=== PATIENT | female | born 1990 | race Caucasian/White ===

== ENCOUNTER → 2022-08-29 09:38 | Outpatient (CLI) | payer BC, SELFPAY ==
--- NOTE | ~2022-08-29 | US_ITS ---
EXAMINATION: US pelvic complete DATE: 08/29/2022 09:55 INDICATION: Pelvic Pain TECHNIQUE: Multiple transabdominal sonographic images of the pelvis were obtained. COMPARISON: None. FINDINGS: Uterus: 8.4 x 3.3 x 4.9 cm. Uterus is slightly retroflexed. Endometrial complex measures 3 mm. Right Ovary: 2.0 x 2.3 x 2.6 cm. Vascular flow is present. Left Ovary: 2.8 x 1.6 x 2.9 cm. Vascular flow is present. There is no free fluid in the pelvis. IMPRESSION: Normal pelvic sonogram findings. Reviewed, dictated and finalized at location K. DRIVER OPERATOR HELPER
== END ==
PROVIDERS: PCP Family Medicine; Visit Provider Nurse Practitioner
DX: R10.2 Pelvic and perineal pain (principal)
CPT/HCPCS: 76856

== ENCOUNTER → 2023-09-06 15:50 | Outpatient (CLI) | payer BC, SELFPAY ==
--- NOTE | ~2023-09-06 | US_ITS ---
EXAMINATION: US transvaginal DATE: 09/06/2023 16:21 INDICATION: Displacement of an intrauterine contraceptive TECHNIQUE: Multiple endovaginal sonographic images of the pelvis were obtained. COMPARISON: 08/29/2022 FINDINGS: The uterus measures 7.5 x 3.5 x 3.7 cm. The endometrial complex measures 6 mm in thickness. There is a linear echogenic and shadowing IUD which extends into the endocervical canal with more posterior 4 mm anechoic nabothian cyst at the cervix. The right ovary measures 1.8 x 1.7 x 2.1 cm. The left ovar y measures 2.8 x 2.4 x 2.4 cm. There are a few subcentimeter anechoic follicles at both ovaries. Vasc ular flow identified in both ovaries on color Doppler. There is no free fluid in the pelvis. IMPRESSION: 1. IUD extends into the endocervical canal. Reviewed, dictated and finalized at location A. E EPIDEMIOLOGIST
== END ==
PROVIDERS: PCP Nurse Practitioner; Visit Provider Nurse Practitioner
DX: N93.8 Other specified abnormal uterine and vaginal bleeding (principal); T83.32XA Displacement of intrauterine contraceptive device, initial encounter
CPT/HCPCS: 76830

== ENCOUNTER 2023-10-12 17:39 | Emergency (ER) | payer BC, SELFPAY ==
--- NOTE | ~2023-10-12 | XR_ITS ---
EXAMINATION: XR ankle LT min 3V, XR foot LT min 3V DATE: 10/12/2023 18:01 INDICATION: Left ankle and dorsal foot pain post fall TECHNIQUE: 1. Anteroposterior, mortise, additional oblique and lateral view of the left ankle were obtained. 2. Dorsoplantar, two oblique and lateral views of the left foot were obtained. COMPARISON: None. FINDINGS: Alignment of the foot and ankle is normal. No fracture. Joint spaces are well maintained. No ankle shameka int effusion. Soft tissue swelling about the ankle including both medially and laterally. IMPRESSION: 1. No osseous abnormality at the left foot are ankle. Reviewed, dictated and finalized at location A. RNMENT INSTRUCTOR IMPRESSION: 1. No osseous abnormality at the left foot are ankle.
--- NOTE | 2023-10-12 17:46 | ED.LOWEXIN ---
HPI - Extremity Injury (Lower) General Chief Complaint: Extremity Injury, Lower Stated Complaint: Injured left ankle Time Seen by Provider: 10/12/23 18:10 Source: patient and RN notes reviewed Mode of arrival: ambulatory Limitations: no limitations History of Present Illness HPI Narrative: 33-year-old female presents with concern for left ankle injury. She reports she injured her ankle after falling. She reports swelling, bruising, 10/10 pain. She used an Zak wrap. MD complaint: ankle injury Related Data Allergies Allergy/AdvReac Type Severity Reaction Status Date / Time No Known Allergies Allergy Unverified 01/20/19 13:40 Review of Systems Review of Systems: CONSTITUTIONAL: Denies malaise, chills, sweats, or fever. SKIN: Denies rash or itching, open skin, laceration, abrasion, redness, warmth MUSCULOSKELETAL: Reports left ankle pain, swelling, bruising NEUROLOGIC: Denies numbness, weakness All systems reviewed & are unremarkable except as noted in HPI and below PMFSH Comments At time of signature, agree with nursing past medical, surgical, social and family history. There is no relevant family history pertinent to the presenting complaint Exam Narrative: GENERAL: Well-appearing, well-nourished, and in no acute distress. HEAD: Normocephalic, atraumatic. EYES: PERRLA, conjunctivae clear NECK: Supple. CHEST: Speaks in full sentences. No respiratory distress. HEART: Regular rate and rhythm. Normal and equal peripheral pulses. EXTREMITIES: Left ankle, foot, digits have grossly normal strength and sensation, grossly normal range of motion. Moderate edema, mild ecchymosis. Normal sensation with sensitivity to light touch and pain. Dorsal lateral tenderness. No open wounds, no skin tenting, no devitalized tissue or atrophy, no trophic changes, no obvious deformity, alignment normal, nearby joints and structures intact. Distal pulses palpable and equal bilaterally, skin warm, dry, pink. Capillary refill less than 3 seconds. SKIN: Warm, dry, no rash. NEURO: Alert and oriented x3. PSYCH: Normal mood and affect Course Course Emergency Course: Patient is aware of diagnosis, understands and agrees to treatment plan. Anticipatory guidance given. Patient agrees to follow-up as directed and is aware of reasons to seek care at the emergency department. Portions of this record may have been created with voice recognition software Level of Care: Express Care Visit Vital Signs Vital signs: Reviewed. MDM - Extremity Injury (Lower) MDM Narrative Medical decision making narrative: Patients injury and pain is consistent with musculoskeletal etiology. No signs of neurological or vascular compromise on exam. Compartments and tissues are soft without signs of compartment syndrome. Pain is felt appropriate for further evaluation on an outpatient basis. Critical Care Time Critical Care Time Critical Care Time: No Discharge Plan Discharge Clinical Impression: Ankle sprain and strain Patient Disposition: Home, Self-Care Condition: Stable Instructions: Ankle Sprain (ED) Additional Instructions: Avoid activities that cause pain until the pain subsides. Ice to the area 20-30 minutes 4-6 times a day Elevate above heart Elastic wrap as directed for comfort for the next 5-7 days Crutches as directed if needed Tylenol for lesser pain Ibuprofen regularly for the next 2-3 days for the inflammation Follow up with your primary care provider if the condition is not improving within 1 week. If the condition worsens with numbness, tingling, decrease sensation with weakness seek treatment in the emergency room immediately. Follow-up/Referrals: Anthony Connors MD [Physician] - Harms,Hever Huber M.D. [Primary Care Provider] - Time of Disposition: 18:18
[2023-10-12 17:47] VITALS: BP 140/97; PULSE 76; RESP 16; TEMP 37.1; O2SAT 100
== END 2023-10-12 18:30 | disposition home or self-care (01) ==
PROVIDERS: Emergency Provider Nurse Practitioner; PCP Family Medicine
DX: S93.402A Sprain of unspecified ligament of left ankle, initial encounter (principal); S96.912A Strain of unspecified muscle and tendon at ankle and foot level, left foot, initial encounter; W19.XXXA Unspecified fall, initial encounter
CPT/HCPCS: 73610; 73630; 99213; G0463